=== PATIENT | female | born 1990 | race Caucasian/White ===

== ENCOUNTER 2024-01-23 08:00 | Outpatient (CLI) | payer OTHER ==
[2024-01-23 11:39] LABS: BILIRUBIN,URINE NEGATIVE (NEGATIVE); GLUCOSE, URINE (UA) NEGATIVE (NEGATIVE); KETONES,URINE (UA) NEGATIVE (NEGATIVE); LEUKOCYTE ESTERASE, URINE SMALL (NEGATIVE); NITRITE,URINE NEGATIVE (NEGATIVE); OCCULT BLOOD,URINE NEGATIVE (NEGATIVE); PROTEIN,URINE NEGATIVE (NEGATIVE); UROBILINOGEN,URINE 0.2 (NORMAL) E.U./dL (NORMAL)
[2024-01-23 11:50] LABS: CLARITY,URINE CLEAR (CLEAR)
[2024-01-23 11:51] LABS: BACTERIA,URINE Few /HPF (None Seen); RBC,URINE 0-5 /HPF (0-5); SQUAMOUS EPITHELIAL CELL,UR MANY Squamous (<= Few)
== END 2024-01-23 23:59 | disposition home or self-care (01) ==
LOC: LAB.WC 08:00
PROVIDERS: ATTEND Obstetrics & Gynecology
DX: Z34.90 Encounter for supervision of normal pregnancy, unspecified, unspecified trimester (principal)
CPT/HCPCS: 81001; 87086

== ENCOUNTER 2024-01-23 12:16 | Outpatient (CLI) | payer OTHER ==
[2024-01-23 17:47] LABS: BASOPHILS # (AUTO) 0.1 10^3/uL (0.0-0.1); BASOPHILS % (AUTO) 1.2 %; EOSINOPHILS # (AUTO) 0.4 10^3/uL (0.0-0.7); EOSINOPHILS % (AUTO) 6.3 %; HCT - HEMATOCRIT 41.5 % (37.0-47.0); HGB - HEMOGLOBIN 13.7 g/dL (12.0-16.0); LYMPHOCYTES # (AUTO) 1.9 10^3/uL (1.5-3.5); LYMPHOCYTES % (AUTO) 31.8 %; MEAN CORPUSCULAR HEMOGLOBIN 29.5 pg (27.0-31.0); MEAN CORPUSCULAR VOLUME 89.4 fL (81.0-99.0); MEAN PLATELET VOLUME 10.6 fL (7.9-10.8); MONOCYTES # (AUTO) 0.6 10^3/uL (0.0-1.0); MONOCYTES % (AUTO) 9.9 %; NEUTROPHILS # (AUTO) 3.1 10^3/uL (1.5-6.6); NEUTROPHILS % (AUTO) 50.5 %; PLT - PLATELET COUNT 348 10^3/uL (130-450); RED BLOOD COUNT 4.64 10^6/uL (4.20-5.40); RED CELL DISTRIBUTION WIDTH 12.7 % (12.0-15.0)
[2024-01-24 05:12] LABS: HBsAG SCREEN Negative (Negative); HIV SCREEN 4TH GENERATION Non Reactive (Non Reactive)
[2024-01-24 06:11] LABS: RPR Non Reactive (Non Reactive)
[2024-01-24 09:10] LABS: VARICELLA-ZOSTER AB IGG 849 index (Immune >165)
[2024-01-26 00:08] LABS: HCV AB Non Reactive (Non Reactive)
== END 2024-01-23 12:17 | disposition home or self-care (01) ==
LOC: LAB.N 12:16
PROVIDERS: ATTEND Obstetrics & Gynecology
DX: Z34.90 Encounter for supervision of normal pregnancy, unspecified, unspecified trimester (principal)
CPT/HCPCS: 36415; 81001; 85025; 86592; 86762; 86787; 86803; 86850; 86900; 86901; 87086; 87340; 87389

== ENCOUNTER 2024-01-29 13:32 | Outpatient (CLI) | payer OTHER ==
--- NOTE | 2024-01-29 22:03 | Ultrasound Report ---
PROCEDURE: OB 1st Trimester w/TV INDICATIONS: POSITIVE TEST OUTSIDE/PRIOR DATING DATA: Last menstrual period (LMP): 12/05/2023. LMP-based estimated date of delivery (DAGO): 09/10/2024. First dating scan (date and location): 01/29/2024. Estimated date of delivery (DAGO) from first dating scan: 09/24/2024. TECHNIQUE: Real-time scanning was performed of the fetus and maternal pelvic organs, with image documentation. Endovaginal scanning was also performed to better visualize the fetus and maternal ovaries. COMPARISON: None. FINDINGS: Intrauterine gestational sac present. Embryo: 0.29 cm, gestational age 5 weeks 6 days Heart rate: Not detected at this time. A yolk sac is noted. Other: Small perigestational fluid collection measuring 0.6 x 0.6 x 0.4 cm. Measurement variability in dating: +/- 4 weeks by LMP, +/- 7 days by mean sac diameter (use before 6 weeks gestation if crown-rump length not able to be measured), +/- 5 days by crown-rump length (6-12 weeks gestation). Maternal organs: Ovaries appear within normal limits. Right corpus luteum. IMPRESSION: 1. [place] intrauterine at 5 weeks 6 days based on today's crown-rump length. No cardiac activity detected at this time. -Recommend short-term follow-up OB ultrasound in 7-10 days. 2. Small perigestational hemorrhage. Reviewed by: Tad Vargas MD on 01/29/2024 10:02 PM PDT Approved by: Tad Vargas MD on 01/29/2024 10:02 PM PDT Station ID: [id number]
== END 2024-01-29 13:33 | disposition home or self-care (01) ==
LOC: DI 13:32
PROVIDERS: ATTEND Obstetrics & Gynecology
DX: O46.91 Antepartum hemorrhage, unspecified, first trimester (principal); Z3A.01 Less than 8 weeks gestation of pregnancy

== ENCOUNTER 2024-02-09 07:47 | Outpatient (CLI) | payer OTHER ==
--- NOTE | 2024-02-09 11:21 | Ultrasound Report ---
PROCEDURE: OB 1st Trimester w/TV INDICATIONS: WITH INCONCLUSIVE VIABILITY OUTSIDE/PRIOR DATING DATA: Last menstrual period (LMP): 12/05/2023. LMP-based estimated date of delivery (DAGO): 09/10/2024. First dating scan (date and location): 01/29/2024. Estimated date of delivery (DAGO) from first dating scan: 09/24/2024. TECHNIQUE: Real-time scanning was performed of the fetus and maternal pelvic organs, with image documentation. Endovaginal scanning was also performed to better visualize the fetus and maternal ovaries. COMPARISON: 01/29/2024 FINDINGS: Intrauterine gestational sac present. Embryo: [place]-rump length 0.25 cm 5 week 6 day gestation Heart rate: No cardiac motion observed during the exam Other: [place]-gestational hemorrhage now measures 0.9 x 0.7 x 0.7 cm. Measurement variability in dating: +/- 4 weeks by LMP, +/- 7 days by mean sac diameter (use before 6 weeks gestation if crown-rump length not able to be measured), +/- 5 days by crown-rump length (6-12 weeks gestation). Maternal organs: Ovaries appear within normal limits. IMPRESSION: [place]-rump length 2.5 mm without cardiac motion, no interval growth over 11 days, and enlarging perig estational hemorrhage are consistent with demise Reviewed by: Kurt Reilly MD on 02/09/2024 10:20 AM MANAN Approved by: Kurt Reilly MD on 02/09/2024 10:20 AM MANAN Station ID: [id number]
== END 2024-02-09 07:48 | disposition home or self-care (01) ==
LOC: DI 07:47
PROVIDERS: ATTEND Obstetrics & Gynecology
DX: O36.8310 Maternal care for abnormalities of the fetal heart rate or rhythm, first trimester, not applicable or unspecified (principal); O20.8 Other hemorrhage in early pregnancy; Z3A.00 Weeks of gestation of pregnancy not specified

== ENCOUNTER 2024-02-15 06:15 | Day surgery (SDC) | payer OTHER ==
[2024-02-15] MEDS: LACTATED RINGERS 1,000 ML IV ONE (06:21)
[2024-02-15 06:35] LABS: HCG UR QUAL POSITIVE
[2024-02-15] MEDS: ACETAMINOPHEN 325 MG TABLET PO ONE (06:51)
[2024-02-15] MEDS ORDERED: MORPHINE 2 MG/ML CARPUJECT IVP PRN (07:11)
[2024-02-15] MEDS ORDERED: ATROPINE ABBOJECT 1 MG/10 ML SYRINGE IVP PRN (07:11)
[2024-02-15] MEDS ORDERED: fentaNYL 100 MCG/2 ML VIAL IVP PRN (07:11)
[2024-02-15] MEDS ORDERED: NALOXONE 0.4 MG/ML VIAL IVP PRN (07:11)
[2024-02-15] MEDS ORDERED: METOCLOPRAMIDE 10 MG/2 ML VIAL IVP PRN (07:11)
[2024-02-15] MEDS ORDERED: ePHEDrine 50 MG/ML VIAL IVP PRN (07:11)
[2024-02-15] MEDS ORDERED: ONDANSETRON 4 MG/2 ML VIAL IVP PRN (07:11)
[2024-02-15] MEDS ORDERED: HYDROmorphone 0.5 MG/0.5 ML SYRINGE IVP PRN (07:11)
--- NOTE | 2024-02-15 07:11 | ANESTHESIA ---
Pre-Anesthesia VS, & Labs - Diagnosis MISSED AB - Procedure SUCTION D/C Vital Signs: Temp Pulse Resp BP Pulse Ox O2 Flow Rate 36.4 C L 74 16 112/70 100 02/15/24 06:29 02/15/24 06:29 02/15/24 06:29 02/15/24 06:29 02/15/24 06:29 Height: 5 ft 8 in Weight (kg): 82.9 kg Body Mass Index: 27.8 BMI Classification: Overweight - NPO >8 hours - Is Patient ?: Yes (MISSED AB) Home Medications and Allergies Home Medications: Ambulatory Orders No Known Home Medications 02/13/24 No Known Home Medications 02/13/24 Allergies/Adverse Reactions: Allergies Allergy/AdvReac Type Severity Reaction Status Date / Time No Known Drug Allergies Allergy Verified 02/13/24 11:11 Anes History & Medical History - Anesthetic History Family history of Anesthesia Complications: Denies - Medical History Cardiovascular: reports: None Pulmonary: reports: None Gastrointestinal: reports: GERD Urinary: reports: None Musculoskeletal: reports: None Endocrine/Autoimmune: reports: None Skin: reports: None Smoking Status: Never smoker Psychosocial: reports: No issues indicated Results - EKG Results EKG Comparison: Reviewed EKG Exam General: Alert, Oriented x3 Dental: WNL Mouth Openin Fingerbreadth Neck Mobility: Normal Mallampati classification: II Thyromental Distance: 4-6 cm Respiratory: Lungs clear Cardiovascular: Regular rate Plan Anesthesia Type: General Consent for Procedure(s) Verified and Reviewed: Yes Code Status: Attempt Resuscitation ASA classification: 2-Mild systemic disease Is this case an emergency?: No
[2024-02-15] MEDS ORDERED: MIDAZOLAM 2 MG/2 ML VIAL ONE (07:17)
[2024-02-15] MEDS ORDERED: fentaNYL 100 MCG/2 ML VIAL ONE ×2 (07:18→08:22)
[2024-02-15] MEDS ORDERED: LIDOCAINE-MPF 2% 5 ML VIAL ONE (07:18)
[2024-02-15] MEDS ORDERED: PROPOFOL 200 MG/20 ML VIAL IVP ONE (07:18)
[2024-02-15] MEDS ORDERED: LIDOCAINE 1%-EPI 1:100000 20 ML MDV ONE (07:29)
[2024-02-15] MEDS ORDERED: LACTATED RINGERS 1,000 ML IV SCH (08:00)
[2024-02-15] MEDS ORDERED: KETOROLAC 30 MG/ML VIAL ONE (08:22)
[2024-02-15] MEDS ORDERED: ONDANSETRON 4 MG/2 ML VIAL ONE (08:22)
[2024-02-15] MEDS ORDERED: DEXAMETHASONE 4 MG/ML VIAL ONE (08:22)
[2024-02-15] MEDS: LACTATED RINGERS 200 ML IV ONE (08:34)
[2024-02-15] MEDS ORDERED: oxyCODONE 5 MG TABLET PO PRN (09:43)
[2024-02-15 10:11] VITALS: BP 115/70; O2SAT 98
--- NOTE | 2024-02-15 12:23 | ANESTHESIA POST OP EVALUATION ---
Anesthesia Post Eval - Post Anesthesia Eval Vitals: Last Vital Signs Temp 36.5 C 02/15/24 10:01 Pulse 60 02/15/24 10:01 Resp 16 02/15/24 10:01 BP 115/70 02/15/24 10:01 Pulse Ox 98 02/15/24 10:01 O2 Flow Rate CV Function Including HR & BP: Stable Pain Control: Satisfactory Nausea & Vomiting: Negative Mental Status: Baseline Respiratory Status: Airway Patent Hydration Status: Satisfactory Anesthesia Complications: None
--- NOTE | 2024-02-15 17:03 | OPERATIVE REPORT ---
Operative Report - General Procedure Date: 02/15/24 Planned Procedure: suction D&C of uterus Pre-Op Diagnosis: missed Procedure Performed: same Post Op Diagnosis: same - Procedure Note Primary Surgeon: Courtney Rhodes MD Anesthesia Provider: Joe Rain CRNA Anesthesia Technique: General LMA Pathology: products of conception to [facility] for pathology and to [facility] for Anora testing. IV Fluids (mL): 600 Estimated Blood Loss (mL): 400 Urine Output (mL): 0 Indications: missed diagnosed on 2 ultrasounds 10 days apart. no growth in between. No live pole. Wanted timed with partner's deployment. Both active duty . Findings: Uterus was products of conception. about 8 cm anteverted. Complications: none - Other Other Information/Narrative: Patient was brought to the OR and general LMA anesthesia was given. legs placed in Shawn stirrups. Exam done. Prep done. Time out. Speculum placed. cervix grasped with tenaculum and dilated to allow 7 mm flexible suction curette to pass. Started bleeding as soon as cervix was dilated. Suction curette placed into cavity and suction turned on. I turned it all around the uterus and some tissue came out but uterus did not feel empty. Gentle sharp curettage was done and suction replaced. After this uterus did feel empty. Bleeding stopped. Instruments removed. Specimen examined and tissue to send for genetic testing, which patient requested pre-operatively. Patient awakened and brought to PACU in stable condition.
== END 2024-02-15 06:16 | disposition home or self-care (01) ==
LOC: SDS 06:15
PROVIDERS: ATTEND Obstetrics & Gynecology
PROC: 10D17ZZ Extraction of Products of Conception, Retained, Via Natural or Artificial Opening (ICD-10-PCS; principal; 2024-02-15 07:30)
DX: O02.1 Missed abortion (principal)
CPT/HCPCS: 59820; 81025; A9270; J7120; 81599

== ENCOUNTER 2024-03-05 12:33 | Outpatient (CLI) | payer OTHER | END 2024-03-05 12:34 | disposition home or self-care (01) | LOC: LAB.N 12:33 | PROVIDERS: ATTEND Obstetrics & Gynecology | DX: O02.1 Missed abortion (principal) | CPT/HCPCS: 36415; 84702 ==

== ENCOUNTER 2024-03-13 10:26 | Outpatient (CLI) | payer OTHER ==
[2024-03-13 11:10] LABS: THYROID STIMULATING HORMONE 2.33 uIU/mL (0.34-5.60)
[2024-03-13 12:26] LABS: ESTIMATED AVERAGE GLUCOSE 91 mg/dL (70-100); HEMOGLOBIN A1c% 4.8 % (4.27-6.07)
== END 2024-03-13 10:27 | disposition home or self-care (01) ==
LOC: LAB 10:26
PROVIDERS: ATTEND Obstetrics & Gynecology
DX: O02.1 Missed abortion (principal)
CPT/HCPCS: 36415; 83036; 84443; 84702

== ENCOUNTER 2024-04-03 14:55 | Outpatient (CLI) | payer OTHER | END 2024-04-03 14:56 | disposition home or self-care (01) | LOC: LAB.N 14:55 | PROVIDERS: ATTEND Obstetrics & Gynecology | DX: O02.1 Missed abortion (principal) | CPT/HCPCS: 36415; 84702 ==

== ENCOUNTER 2024-06-11 14:40 | Outpatient (CLI) | payer OTHER ==
--- NOTE | 2024-06-11 17:51 | Ultrasound Report ---
PROCEDURE: Pelvic w/Transvaginal INDICATIONS: MISSED TECHNIQUE: Real-time scanning was performed of the pelvic organs, with image documentation. Additional endovagi nal scanning was necessary due to incomplete visualization of the adnexal and endometrial structures by transabdominal scanning. COMPARISON: 02/09/2024 FINDINGS: Uterus: 8.7 x 3.8 x 5.6 cm anteverted positioning. Endometrium measures 5 to 6 mm. There is a 0.2 cm cystic region within the endometrium. No pole is identified. Ovaries: Nonenlarged bilaterally. 1.2 cm left follicular cyst. Other: Moderate degree of right adnexal fluid is present. IMPRESSION: 0.2cm cystic lesion within the endometrium. There is no pole. Consider clinical and imaging fol low-up in 14 days or sooner depending of test results. Nonenlarged ovaries bilaterally. Indeterminate moderate degree of free fluid surrounding the right adnexa. Differential includes a rup tured cyst. If there are no symptoms, a ruptured ectopic is unlikely Reviewed by: Agus Mathew MD on 06/11/2024 5:49 PM PDT Approved by: Agus Mathew MD on 06/11/2024 5:49 PM PDT Station ID: [id number]
== END 2024-06-11 14:41 | disposition home or self-care (01) ==
LOC: DI 14:40
PROVIDERS: ATTEND Obstetrics & Gynecology
DX: N85.8 Other specified noninflammatory disorders of uterus (principal)